=== PATIENT | male | born 2000 | race Caucasian/White ===

== ENCOUNTER 2025-02-04 18:58 | Inpatient (IN) | payer BC, OTHER ==
[~2025-02-04] VITALS: Ht 182.9 cm; Wt 112.0 kg
[2025-02-04 21:46] LABS: COVID AG,FIA SOURCE NASAL SWAB
[2025-02-04 22:16] LABS: SARS-COV2 (COVID) ANTIGEN,FIA Negative (Negative)
[2025-02-04 23:09] LABS: BASOPHILS % (AUTO) 0.2 % (0.0-2.0); EOSINOPHILS % (AUTO) 0 % (1.0-6.0); HEMATOCRIT 42.4 % (41-53); HEMOGLOBIN 14.4 g/dL (13.5-17.5); LYMPHOCYTES # (AUTO) 1.5 K/uL (1.0-4.8); LYMPHOCYTES % (AUTO) 14.1 % (22.0-44.0); MEAN CORPUSCULAR HEMOGLOBIN 30.1 pg (26.0-34.0); MEAN CORPUSCULAR HGB CONC 33.8 G/dL (31.0-37.0); MEAN CORPUSCULAR VOLUME 89 fL (80-100); MONOCYTES # (AUTO) 0.8 K/uL (0.1-1.0); MONOCYTES % (AUTO) 7.7 % (2.0-9.0); NEUTROPHILS # (AUTO) 8.1 K/uL (1.8-7.7); PLATELET COUNT (AUTO) 232 K/uL (150-450); RED BLOOD CELL COUNT(AUTO) 4.77 MIL/uL (4.50-5.90); RED CELL DISTRIBUTION WIDTH 14.5 % (11.5-14.5); WHITE BLOOD COUNT (AUTO) 10.4 K/uL (4.5-11.0)
[2025-02-04 23:16] LABS: ANION GAP 10 mmol/L (8-16); CALCIUM, TOTAL 9.5 mg/dL (8.8-10.5); CARBON DIOXIDE 29 mmol/L (22-29); CHLORIDE 104 mmol/L (98-107); CREATININE 0.77 mg/dL (0.60-1.30); GLOMERULAR FILTR. RATE CALC > 60 mL/min (>60); GLUCOSE,RANDOM 93 mg/dL (70-110); POTASSIUM 3.6 mmol/L (3.5-5.1); SODIUM SERUM 143 mmol/L (136-145); UREA NITROGEN, BLOOD 9 mg/dL (7-18)
[2025-02-05] MEDS: NICOTINE 7 MG/24 HOUR PATCH TD ONE (00:50)
[2025-02-05] MEDS: ZOLPIDEM TARTRATE 10 MG TABLET PO PRN (01:03)
[2025-02-05] MEDS: LORazepam 2 MG TABLET PO PRN (01:06)
[2025-02-05 01:25] LABS: APPEARANCE,URINE HAZY (CLEAR); BILIRUBIN,URINE NEGATIVE (NEGATIVE); COLOR,URINE YELLOW (YELLOW); GLUCOSE, URINE (UA) NEGATIVE (NEGATIVE); KETONES,URINE 40-60 mg/dL (NEGATIVE); LEUKOCYTE ESTERASE ,URINE TRACE (NEGATIVE); NITRATE,URINE NEGATIVE (NEGATIVE); OCCULT BLOOD,URINE NEGATIVE (NEGATIVE); PH,URINE 6.5 (5.0-8.0); PH,URINE DRUG SCREEN 6.5 (5.0-8.0); PROTEIN,URINE 30-70 mg/dL (NEGATIVE); SPECIFIC GRAVITIY, URINE 1.036 (1.003-1.030)
[2025-02-05 01:32] LABS: ALCOHOL, URINE DRUG SCREEN NEGATIVE (NEGATIVE); AMPHET/METH SCREEN,URINE POSITIVE (NEGATIVE); BARBITURATE SCREEN, URINE NEGATIVE (NEGATIVE); BENZODIAZEPINES SCREEN,URINE NEGATIVE (NEGATIVE); CANNABINOID SCREEN,URINE NEGATIVE (NEGATIVE); COCAINE SCREEN,URINE NEGATIVE (NEGATIVE); METHADONE SCREEN, URINE NEGATIVE (NEGATIVE); OPIATE SCREEN,URINE NEGATIVE (NEGATIVE); PHENCYCLIDINE SCREEN,URINE NEGATIVE (NEGATIVE)
[2025-02-05 01:46] LABS: BACTERIA,URINE Rare /HPF (None Seen); CALCIUM OXALATE CRYSTALS,UR Rare /LPF (None Seen); MUCUS,URINE Many LPF (None Seen); RBC,URINE None Seen /HPF (0-2); SQUAMOUS EPITHELIAL CELL,UR Few /LPF (None Seen); WBC,URINE 0-2 /HPF (0-5)
[2025-02-05 05:13] LABS: BASOPHILS % (AUTO) 0.2 % (0.0-2.0); EOSINOPHILS % (AUTO) 0.1 % (1.0-6.0); HEMATOCRIT 42.2 % (41-53); HEMOGLOBIN 14.2 g/dL (13.5-17.5); LYMPHOCYTES # (AUTO) 1.7 K/uL (1.0-4.8); LYMPHOCYTES % (AUTO) 20.2 % (22.0-44.0); MEAN CORPUSCULAR HEMOGLOBIN 30.2 pg (26.0-34.0); MEAN CORPUSCULAR HGB CONC 33.8 G/dL (31.0-37.0); MEAN CORPUSCULAR VOLUME 90 fL (80-100); MONOCYTES # (AUTO) 0.7 K/uL (0.1-1.0); MONOCYTES % (AUTO) 7.9 % (2.0-9.0); NEUTROPHILS % (AUTO) 71.6 % (40.0-70.0); PLATELET COUNT (AUTO) 222 K/uL (150-450); RED BLOOD CELL COUNT(AUTO) 4.71 MIL/uL (4.50-5.90); RED CELL DISTRIBUTION WIDTH 14.4 % (11.5-14.5); WHITE BLOOD COUNT (AUTO) 8.4 K/uL (4.5-11.0)
[2025-02-05 05:28] LABS: HEMOGLOBIN A1C 4.9 % (3.8-5.6)
[2025-02-05 05:35] LABS: ALANINE AMINOTRANSFERASE 25 U/L (12-78); ALBUMIN 3.7 g/dL (3.4-5.0); ALKALINE PHOSPHATASE 81 U/L (46-116); ANION GAP 9 mmol/L (8-16); ASPARTATE AMINOTRANSFERASE 8 U/L (15-37); BILIRUBIN,TOTAL 0.4 mg/dL (0.1-1.0); CARBON DIOXIDE 29 mmol/L (22-29); CHLORIDE 104 mmol/L (98-107); CHOL/HDL RATIO 2.6 (4.2-7.3); CHOLESTEROL 154 mg/dL (131-200); GLOMERULAR FILTR. RATE CALC > 60 mL/min (>60); GLUCOSE,RANDOM 83 mg/dL (70-110); HDL CHOLESTEROL 60 mg/dL (40-60); LDL CHOL (CALC.) 80 mg/dL (0-130); POTASSIUM 3.8 mmol/L (3.5-5.1); SODIUM SERUM 142 mmol/L (136-145); T4 (THYROXINE) 6.8 mcg/dL (4.7-13.3); TOTAL PROTEIN, SERUM 6.3 g/dL (6.4-8.2); TRIGLYCERIDES 71 mg/dL (15-150); UREA NITROGEN, BLOOD 10 mg/dL (7-18)
[2025-02-05] MEDS: haloperidoL 5 MG TABLET PO PRN (09:00)
[2025-02-05] MEDS: NICOTINE 14 MG/24 HOUR PATCH TD ONE (09:09)
[2025-02-05] MEDS: NICOTINE POLACRILEX 4 MG GUM CHEW ONE (16:54)
[2025-02-05] MEDS: ONDANSETRON 4 MG TABLET PO ONE (20:06)
[2025-02-06 09:27] VITALS: O2SAT 100
[2025-02-06 15:35] VITALS: BP 118/77; PULSE 98; RESP 18; TEMP 97.8; O2SAT 99
[2025-02-06 23:24] VITALS: RESP 16; TEMP 97.4
[2025-02-07] MEDS ORDERED: MAGNESIUM HYDROXIDE SUSPENSION 30 ML UDCUP PO PRN (07:00)
[2025-02-07] MEDS ORDERED: CloNIDine HCL 0.1 MG TABLET PO PRN (07:00)
[2025-02-07] MEDS ORDERED: ONDANSETRON 4 MG TABLET PO PRN (07:00)
[2025-02-07] MEDS ORDERED: GuaiFENesin/D-METHORPHAN [SUGAR-FREE] 200-20MG/10 ML SYRUP UDCUP PO PRN (07:00)
[2025-02-07] MEDS ORDERED: ACETAMINOPHEN 325 MG TABLET PO PRN (07:00)
[2025-02-07] MEDS ORDERED: DOCUSATE SODIUM 100 MG CAPSULE PO PRN (07:00)
[2025-02-07] MEDS ORDERED: PETROLATUM,WHITE 28 GM JELLY TP PRN (07:00)
[2025-02-07] MEDS ORDERED: MAG HYDROX/ALUMINUM HYD/SIMETH ES 30 ML SUSPENSION UDCUP PO PRN (07:00)
[2025-02-07] MEDS ORDERED: ALBUTEROL SULFATE HFA 90 MCG/PUFF 8 GM INHALER IH PRN (07:00)
[2025-02-07] MEDS ORDERED: NICOTINE 14 MG/24 HOUR PATCH TD PRN (07:00)
[2025-02-07] MEDS ORDERED: LOPERAMIDE HCL 2 MG CAPSULE PO PRN (07:00)
[2025-02-07] MEDS: NICOTINE 14 MG/24 HOUR PATCH TD SCH (08:39)
[2025-02-07] MEDS: CEPHALEXIN MONOHYDRATE 250 MG CAPSULE PO SCH (09:09)
[2025-02-07 10:19] VITALS: BP 120/90; PULSE 67; RESP 16; TEMP 97.9; O2SAT 99
[2025-02-07] MEDS: VENLAFAXINE HCL 75 MG ER CAPSULE PO SCH (15:35)
[2025-02-07] MEDS: DiphenhydrAMINE HCL 50 MG/ML VIAL IM ONE (15:51)
[2025-02-07] MEDS: amantadine HCL 100 MG CAPSULE PO SCH (18:04)
[2025-02-07] MEDS: OXcarbazepine 300 MG TABLET PO SCH (18:04)
[2025-02-07] MEDS: BENZTROPINE MESYLATE 1 MG TABLET PO SCH (18:04)
[2025-02-07] MEDS: estradioL 1 MG TABLET PO SCH (18:04)
[2025-02-07] MEDS: TraZODone HCL 150 MG TABLET PO SCH (20:59)
[2025-02-07 21:18] VITALS: BP 125/77; PULSE 95; RESP 18; TEMP 97.5; O2SAT 98
[2025-02-08 07:21] LABS: HEMOGLOBIN A1C 4.9 % (3.8-5.6)
[2025-02-08 07:24] LABS: CHOL/HDL RATIO 2.9 (4.2-7.3)
[2025-02-08 07:32] LABS: THYROID STIMULATING HORMONE 0.99 uIU/mL (0.36-3.74)
[2025-02-08] MEDS: VENLAFAXINE HCL 75 MG ER CAPSULE PO SCH (09:33)
[2025-02-08 10:30] VITALS: BP 126/75; PULSE 101; RESP 19; TEMP 97.8; O2SAT 98
[2025-02-08 22:00] VITALS: BP 128/88; PULSE 99; RESP 17; TEMP 98.1; O2SAT 100
[2025-02-09 21:10] VITALS: BP 118/95; PULSE 96; RESP 18; TEMP 97.1; O2SAT 97
[2025-02-09] MEDS: IBUPROFEN 400 MG TABLET PO PRN (21:14)
[2025-02-09 22:58] VITALS: RESP 18
[2025-02-10 13:40] VITALS: BP 109/73; PULSE 103; RESP 18; TEMP 97.3; O2SAT 99
[2025-02-10] MEDS ORDERED: TRAZ-283 PO (16:12)
[2025-02-10] MEDS ORDERED: ESTR-95 PO (16:12)
[2025-02-10] MEDS ORDERED: AMAN-24 PO (16:12)
[2025-02-10] MEDS ORDERED: VENL-67 PO ×2 (16:12)
[2025-02-10] MEDS ORDERED: OXCA300T70 PO (16:12)
[2025-02-10] MEDS ORDERED: BENZ-247 PO (16:12)
== END 2025-02-10 17:15 | disposition home or self-care (01) | DRG 885 ==
LOC: EMS 19:09 → 3EI 02-06 14:30
PROVIDERS: ADMIT Psychiatry & Neurology Child & Adolescent Psychiatry; ATTEND Psychiatry & Neurology Child & Adolescent Psychiatry
PROC: GZ56ZZZ Individual Psychotherapy, Supportive (ICD-10-PCS; principal; 2025-02-07)
PROC: GZ58ZZZ Individual Psychotherapy, Cognitive-Behavioral (ICD-10-PCS; 2025-02-07)
PROC: GZHZZZZ Group Psychotherapy (ICD-10-PCS; 2025-02-07)
DX: F33.2 Major depressive disorder, recurrent severe without psychotic features (principal); F15.20 Other stimulant dependence, uncomplicated; R45.851 Suicidal ideations; E78.5 Hyperlipidemia, unspecified; Z20.822 Contact with and (suspected) exposure to COVID-19; F43.10 Post-traumatic stress disorder, unspecified; F84.0 Autistic disorder; I10 Essential (primary) hypertension; F17.210 Nicotine dependence, cigarettes, uncomplicated; G47.00 Insomnia, unspecified; F41.9 Anxiety disorder, unspecified; T22.012A Burn of unspecified degree of left forearm, initial encounter; X08.8XXA Exposure to other specified smoke, fire and flames, initial encounter; Z79.899 Other long term (current) drug therapy; Y93.89 Activity, other specified; Y92.89 Other specified places as the place of occurrence of the external cause
CPT/HCPCS: 80048; 80053; 80061; 80307; 81001; 83036; 84436; 84443; 85025; 99285; G0480; J1200; Q0162